=== PATIENT | female | born 1980 | race Caucasian/White ===

== ENCOUNTER → 2017-01-19 | Outpatient (CLI) | payer MEDICARE ==
[~2017-01-19] MED LIST: AMOXICILLIN500 M2 PO; BACTROBAN CREAM15 GM PO; CIPRO250 MG PO; CYCLOBENZAPRINE10 MG PO; DIOVAN; DIOVAN160 M1 PO; FLEXERIL10 MG PO; KEFLEX500 MG PO; LIPITOR; LIPITOR40 MG PO; MEDROL DOSEPAK4 MG PO; MOTRIN800 MG PO; PERCOCET 325 MG1 TA2 PO; PRILOSEC20 MG; PRILOSEC40 MG PO; PROZAC10 M1 PO; PROZAC20 MG PO; TRAMADOL HCL50 MG PO; TYLENOL325 M1 PO; ULTRAM50 MG PO; VITAMIN D32000 IU PO; VITAMIN E T; VITAMIN E100 I3 PO; VOLTAREN1% TP; ZITHROMAX250 MG PO
[2017-01-19 13:16] LABS: ALBUMIN 3.1 gm/dl (3.1-4.5); ALKALINE PHOSPHATASE 135 U/L (45-117); BILIRUBIN, TOTAL 0.3 mg/dl (0.2-1.0); BUN 9 mg/dl (7-24); CARBON DIOXIDE 29 mmol/L (21-32); CHLORIDE 102 mmol/L (98-107); CHOLESTEROL 221 mg/dL (<200); EST GLOM FILT AFRICAN AMERICAN > 60 ml/min; GLUCOSE 93 mg/dL (65-99); HDL CHOLESTEROL 42 mg/dl (40-60); LDL CHOLESTEROL 114 mg/dL (9-159); POTASSIUM 4.2 mmol/L (3.5-5.1); SGOT/AST 33 IU/L (3-35); SGPT/ALT 48 U/L (12-78); SODIUM 143 mmol/L (136-145); TOTAL PROTEIN 7.4 gm/dL (6.4-8.2); TRIGLYCERIDES 327 mg/dl (<150); URIC ACID 4.2 mg/dL (2.6-6.0); VLDL CHOLESTEROL 65 mg/dL (6-40)
== END | disposition home or self-care (01) ==
LOC: LAB 12:08
PROVIDERS: Internal Medicine
DX: E11.65 Type 2 diabetes mellitus with hyperglycemia (principal); I10 Essential (primary) hypertension; M79.671 Pain in right foot

== ENCOUNTER → 2017-02-05 | Outpatient (CLI) | payer MEDICARE ==
[2017-02-06 10:07] LABS: MICRO ALBUMIN/CRE RATIO 14.6 (0.0-30.0)
== END | disposition home or self-care (01) ==
LOC: LAB 08:09
PROVIDERS: Internal Medicine
DX: E11.65 Type 2 diabetes mellitus with hyperglycemia (principal)

== ENCOUNTER → 2017-05-10 | Outpatient (CLI) | payer MEDICARE ==
[2017-05-10 08:55] LABS: ALBUMIN 3.1 gm/dl (3.1-4.5); ALKALINE PHOSPHATASE 122 U/L (45-117); BILIRUBIN, TOTAL 0.3 mg/dl (0.2-1.0); BUN 13 mg/dl (7-24); CARBON DIOXIDE 29 mmol/L (21-32); CHLORIDE 103 mmol/L (98-107); EST GLOM FILT AFRICAN AMERICAN > 60 ml/min; GLUCOSE 124 mg/dL (65-99); POTASSIUM 4.5 mmol/L (3.5-5.1); SGOT/AST 24 IU/L (3-35); SGPT/ALT 48 U/L (12-78); SODIUM 139 mmol/L (136-145); TOTAL PROTEIN 7.2 gm/dL (6.4-8.2)
== END | disposition home or self-care (01) ==
LOC: LAB 08:05
PROVIDERS: Internal Medicine
DX: M79.604 Pain in right leg (principal)

== ENCOUNTER → 2017-08-02 | Outpatient (CLI) | payer MEDICARE ==
[2017-08-02 14:52] LABS: BILIRUBIN NEGATIVE (NEGATIVE); BLOOD 3+ (NEGATIVE); CLARITY CLOUDY (CLEAR); COLOR RED (YELLOW); GLUCOSE NEGATIVE (NEGATIVE); KETONE 1+ (NEGATIVE); LEUKO ESTERASE 2+ (NEGATIVE); NITRITE POSITIVE (NEGATIVE); SPECIFIC GRAVITY 1.025 (1.005-1.030)
[2017-08-02 14:53] LABS: HEMOGLOBIN 11.4 g/dl (12.0-16.0); MEAN CELL VOLUME 89.8 fl (81.0-99.0); MEAN CORPUSCULAR HGB 28.4 pg (27.0-31.0); MEAN CORPUSCULAR HGB CONC 31.7 g/dl (33.0-37.0); MEAN PLATELET VOLUME 10.2 fl (9.6-12.3); PLATELET COUNT AUTOMATED 447 10*3/uL (130-400); RED BLOOD COUNT 4.01 10*6/uL (4.10-5.10); RED CELL DISTRI WIDTH 15.7 % (0-14.5); WHITE BLOOD COUNT 23.5 10*3/uL (4.8-10.8)
[2017-08-02 15:03] LABS: RBC TNTC rbc/hpf (0-2)
[2017-08-02 15:18] LABS: ALBUMIN 2.7 gm/dl (3.1-4.5); ALKALINE PHOSPHATASE 143 U/L (45-117); BUN 12 mg/dl (7-24); CHLORIDE 102 mmol/L (98-107); CREATININE 0.78 mg/dL (0.55-1.02); POTASSIUM 3.9 mmol/L (3.5-5.1); SGOT/AST 15 IU/L (3-35); SGPT/ALT 31 U/L (12-78); SODIUM 139 mmol/L (136-145)
[2017-08-02 15:20] LABS: FREE T4 1.05 ng/dl (0.76-1.46)
[2017-08-02 15:37] LABS: BASOPHILS 1 % (0-1); POLYCHROMASIA SLIGHT; TOTAL CELLS COUNTED 100 #CELLS
[2017-08-02 15:39] LABS: PLATELET SUFFICIENCY HIGH (NORMAL)
== END | disposition home or self-care (01) ==
LOC: LAB 13:57 → US 16:00
PROVIDERS: Internal Medicine
DX: N92.1 Excessive and frequent menstruation with irregular cycle (principal); E03.9 Hypothyroidism, unspecified

== ENCOUNTER 2017-08-06 13:29 | Emergency (ER) | payer MEDICARE ==
[~2017-08-06] VITALS: Ht 154.9 cm; Wt 172.4 kg
== END 2017-08-06 15:52 | disposition home or self-care (01) ==
LOC: ED 13:29
DX: M79.605 Pain in left leg (principal); Z79.899 Other long term (current) drug therapy; Z88.2 Allergy status to sulfonamides; Z88.5 Allergy status to narcotic agent; Z88.6 Allergy status to analgesic agent; Z88.1 Allergy status to other antibiotic agents

== ENCOUNTER → 2017-08-13 | Outpatient (CLI) | payer MEDICARE ==
[~2017-08-13] MED LIST changes: +NORCO 5-325 TA1 EACH PO
[2017-08-13 15:28] LABS: BASO # 0.1 10*3/uL (0.0-0.1); BASO % 0.4 % (0.0-1.0); EOS # 0.6 10*3/uL (0.0-0.4); EOS % 2.9 % (1.0-4.0); HEMATOCRIT 37.5 % (37.0-47.0); HEMOGLOBIN 11.7 g/dl (12.0-16.0); LYMPH # 3.3 10*3/uL (1.3-4.4); LYMPH % 16.5 % (27.0-41.0); MEAN CELL VOLUME 87.6 fl (81.0-99.0); MEAN CORPUSCULAR HGB 27.3 pg (27.0-31.0); MEAN CORPUSCULAR HGB CONC 31.2 g/dl (33.0-37.0); MEAN PLATELET VOLUME 9.9 fl (9.6-12.3); MONO # 1.4 10*3/uL (0.1-1.0); NEUT # 14.4 10*3/uL (2.3-7.9); NEUT % 72.7 % (47.0-73.0); NUCLEATED RED BLOOD CELL 0.2 % (0.0-0.0); PLATELET COUNT AUTOMATED 469 10*3/uL (130-400); RED BLOOD COUNT 4.28 10*6/uL (4.10-5.10); RED CELL DISTRI WIDTH 15.5 % (0-14.5); WHITE BLOOD COUNT 19.9 10*3/uL (4.8-10.8)
[2017-08-13 15:41] LABS: BILIRUBIN NEGATIVE (NEGATIVE); BLOOD 3+ (NEGATIVE); CLARITY CLOUDY (CLEAR); COLOR ORANGE (YELLOW); GLUCOSE TRACE (NEGATIVE); KETONE NEGATIVE (NEGATIVE); NITRITE POSITIVE (NEGATIVE); PH 5.5 (5.0-9.0); SPECIFIC GRAVITY >= 1.030 (1.005-1.030)
[2017-08-13 15:48] LABS: LEUKO ESTERASE TRACE (NEGATIVE)
[2017-08-13 15:49] LABS: RBC TNTC rbc/hpf (0-2)
== END | disposition home or self-care (01) ==
LOC: LAB 15:07 → US 16:00
PROVIDERS: Internal Medicine
DX: N92.1 Excessive and frequent menstruation with irregular cycle (principal); N30.01 Acute cystitis with hematuria

== ENCOUNTER 2017-08-14 15:33 | Emergency (ER) | payer MEDICARE ==
[~2017-08-14] VITALS: Ht 154.9 cm; Wt 158.8 kg
[~2017-08-14 15:33] MED LIST changes: -NORCO 5-325 TA1 EACH PO
[2017-08-14 16:33] LABS: HEMOGLOBIN 11.4 g/dl (12.0-16.0); MEAN CELL VOLUME 88.3 fl (81.0-99.0); MEAN CORPUSCULAR HGB 27.2 pg (27.0-31.0); MEAN CORPUSCULAR HGB CONC 30.8 g/dl (33.0-37.0); MEAN PLATELET VOLUME 9.2 fl (9.6-12.3); PLATELET COUNT AUTOMATED 445 10*3/uL (130-400); RED BLOOD COUNT 4.19 10*6/uL (4.10-5.10); RED CELL DISTRI WIDTH 15.3 % (0-14.5); WHITE BLOOD COUNT 17.8 10*3/uL (4.8-10.8)
[2017-08-14 16:42] LABS: INTERNATIONAL NORM RATIO 0.9 (2.0-3.5)
[2017-08-14 16:46] LABS: ALBUMIN 2.6 gm/dl (3.1-4.5); ALKALINE PHOSPHATASE 135 U/L (45-117); BUN 12 mg/dl (7-24); CHLORIDE 104 mmol/L (98-107); CREATININE 0.92 mg/dL (0.55-1.02); LIPASE 93 U/L (73-393); SGOT/AST 18 IU/L (3-35); SGPT/ALT 22 U/L (12-78); SODIUM 139 mmol/L (136-145); TOTAL PROTEIN 7.3 gm/dL (6.4-8.2)
[2017-08-14 17:03] LABS: ATYPICAL LYMPHS 1 % (0-0); TOTAL CELLS COUNTED 100 #CELLS
[2017-08-14 17:04] LABS: PLATELET SUFFICIENCY HIGH (NORMAL); POLYCHROMASIA SLIGHT; STOMATOCYTE FEW
[2017-08-14] MEDS ORDERED: NORCO 5-325 TA1 EACH PO (18:06)
== END 2017-08-14 18:30 | disposition home or self-care (01) ==
LOC: ED 15:33
PROVIDERS: Physician Assistant
DX: M79.605 Pain in left leg (principal); Z88.2 Allergy status to sulfonamides; Z88.6 Allergy status to analgesic agent; Z88.8 Allergy status to other drugs, medicaments and biological substances; Z79.899 Other long term (current) drug therapy

== ENCOUNTER → 2017-08-24 | Outpatient (CLI) | payer MEDICARE ==
[~2017-08-24] MED LIST changes: +NORCO 5-325 TA1 EACH PO
[2017-08-24 16:53] LABS: HEMATOCRIT 38.5 % (37.0-47.0); HEMOGLOBIN 11.7 g/dl (12.0-16.0); MEAN CELL VOLUME 85.2 fl (81.0-99.0); MEAN CORPUSCULAR HGB 25.9 pg (27.0-31.0); MEAN CORPUSCULAR HGB CONC 30.4 g/dl (33.0-37.0); MEAN PLATELET VOLUME 9.8 fl (9.6-12.3); PLATELET COUNT AUTOMATED 596 10*3/uL (130-400); RED BLOOD COUNT 4.52 10*6/uL (4.10-5.10); RED CELL DISTRI WIDTH 14.8 % (0-14.5); WHITE BLOOD COUNT 21.5 10*3/uL (4.8-10.8)
[2017-08-24 17:16] LABS: BASOPHILS 1 % (0-1); POLYCHROMASIA SLIGHT; TOTAL CELLS COUNTED 100 #CELLS
[2017-08-24 17:17] LABS: PLATELET SUFFICIENCY HIGH (NORMAL); STOMATOCYTE FEW
== END | disposition home or self-care (01) ==
LOC: LAB 16:13
PROVIDERS: Internal Medicine
DX: D72.828 Other elevated white blood cell count (principal)

== ENCOUNTER → 2017-09-06 | Outpatient (CLI) | payer MEDICARE ==
[2017-09-06 08:12] LABS: BASO # 0.1 10*3/uL (0.0-0.1); BASO % 0.6 % (0.0-1.0); EOS # 0.4 10*3/uL (0.0-0.4); EOS % 2.3 % (1.0-4.0); HEMATOCRIT 39.9 % (37.0-47.0); HEMOGLOBIN 12.1 g/dl (12.0-16.0); LYMPH # 4.1 10*3/uL (1.3-4.4); LYMPH % 22.7 % (27.0-41.0); MEAN CELL VOLUME 81.9 fl (81.0-99.0); MEAN CORPUSCULAR HGB 24.8 pg (27.0-31.0); MEAN CORPUSCULAR HGB CONC 30.3 g/dl (33.0-37.0); MEAN PLATELET VOLUME 10.4 fl (9.6-12.3); MONO # 1.4 10*3/uL (0.1-1.0); MONO % 7.7 % (3.0-9.0); NEUT # 12.1 10*3/uL (2.3-7.9); NEUT % 66.4 % (47.0-73.0); PLATELET COUNT AUTOMATED 572 10*3/uL (130-400); RED BLOOD COUNT 4.87 10*6/uL (4.10-5.10); RED CELL DISTRI WIDTH 15.2 % (0-14.5); WHITE BLOOD COUNT 18.2 10*3/uL (4.8-10.8)
[2017-09-06 08:45] LABS: THYROID STIM HORMONE (HS) 2.99 uIU/ml (0.358-4.75)
[2017-09-06 08:55] LABS: FERRITIN 10.1 ng/mL (10.0-291.0)
== END | disposition home or self-care (01) ==
LOC: LAB 07:14
PROVIDERS: Internal Medicine
DX: D64.9 Anemia, unspecified (principal); D72.828 Other elevated white blood cell count

== ENCOUNTER → 2017-12-11 | Outpatient (CLI) | payer MEDICARE | END | disposition home or self-care (01) | LOC: RAD 08:43 | DX: J20.9 Acute bronchitis, unspecified (principal) ==

== ENCOUNTER 2018-04-09 12:14 | Emergency (ER) | payer MEDICARE ==
[~2018-04-09] VITALS: Ht 154.9 cm; Wt 190.5 kg
== END 2018-04-09 13:40 | disposition home or self-care (01) ==
LOC: ED 12:14
DX: H61.23 Impacted cerumen, bilateral (principal); Z88.2 Allergy status to sulfonamides; Z88.6 Allergy status to analgesic agent; Z88.8 Allergy status to other drugs, medicaments and biological substances

== ENCOUNTER → 2018-04-17 | Outpatient (CLI) | payer MEDICARE ==
[2018-04-17 10:21] LABS: BUN 12 mg/dl (7-24); CHLORIDE 104 mmol/L (98-107); POTASSIUM 3.9 mmol/L (3.5-5.1); SODIUM 140 mmol/L (136-145)
[2018-05-06 18:03] LABS: CELLS COUNTED 30 (.); CELLS KARYOTYPED 2 (.); DIRECTOR REVIEW Comment: (.); GTG BAND RESOLUTION ACHIEVED 500 (.); INTERPRETATION Comment: (.); SPECIMEN TYPE Comment: (.)
== END | disposition home or self-care (01) ==
LOC: LAB 09:24
PROVIDERS: Internal Medicine; Obstetrics & Gynecology
DX: K76.0 Fatty (change of) liver, not elsewhere classified (principal); E11.65 Type 2 diabetes mellitus with hyperglycemia; E53.8 Deficiency of other specified B group vitamins; N92.1 Excessive and frequent menstruation with irregular cycle; N30.01 Acute cystitis with hematuria; D72.822 Plasmacytosis; D64.9 Anemia, unspecified; J20.9 Acute bronchitis, unspecified; D18.1 Lymphangioma, any site

== ENCOUNTER → 2018-11-04 | Outpatient (CLI) | payer MEDICARE, MEDICAID ==
[~2018-11-04] MED LIST changes: +AUGMENTIN 875875 MG PO; +METFORMIN HYDR750 MG PO
== END | disposition home or self-care (01) ==
LOC: RAD 09:58
DX: D72.828 Other elevated white blood cell count (principal); R05 Cough; R09.89 Other specified symptoms and signs involving the circulatory and respiratory systems; J45.909 Unspecified asthma, uncomplicated

== ENCOUNTER 2019-02-25 16:31 | Emergency (ER) | payer MEDICARE ==
[~2019-02-25] VITALS: Ht 157.4 cm; Wt 199.6 kg
[2019-02-25] MEDS ORDERED: ROBAXIN500 M1 PO (20:42)
[2019-02-25] MEDS ORDERED: PREDNISONE20 M1 PO (20:42)
== END 2019-02-25 19:49 | disposition home or self-care (01) ==
LOC: ED 16:31
DX: G89.29 Other chronic pain (principal); M25.522 Pain in left elbow; M54.41 Lumbago with sciatica, right side; Z88.2 Allergy status to sulfonamides; Z88.5 Allergy status to narcotic agent; Z79.899 Other long term (current) drug therapy; Z79.84 Long term (current) use of oral hypoglycemic drugs

== ENCOUNTER 2019-11-24 21:22 | Emergency (ER) | payer OTHER ==
[~2019-11-24] VITALS: Ht 154.9 cm; Wt 195.0 kg
[~2019-11-24 21:22] MED LIST changes: +PREDNISONE20 M1 PO; +ROBAXIN500 M1 PO
[2019-11-24] MEDS ORDERED: PREDNISONE20 M1 PO (22:36)
[2019-11-24] MEDS ORDERED: ZYRTEC10 M2 PO (22:36)
[2019-12-03] MEDS ORDERED: VITAMIN C1000 M5 PO (08:07)
[2019-12-03] MEDS ORDERED: SYMB160 INH (08:07)
[2019-12-03] MEDS ORDERED: LASIX20 MG PO (08:08)
[2019-12-03] MEDS ORDERED: PROAIR DIGIHAL90 MCG INH (08:08)
[2019-12-03] MEDS ORDERED: SINGULAIR10 M1 PO (08:08)
[2019-12-03] MEDS ORDERED: KLOR-CON M2020 ME1 PO (08:10)
== END 2019-11-24 23:23 ==
LOC: ED 21:22
DX: J40 Bronchitis, not specified as acute or chronic (principal); G89.29 Other chronic pain; M25.512 Pain in left shoulder; M79.602 Pain in left arm; K21.9 Gastro-esophageal reflux disease without esophagitis; Z88.2 Allergy status to sulfonamides; Z88.6 Allergy status to analgesic agent; Z79.899 Other long term (current) drug therapy

== ENCOUNTER 2019-11-29 01:23 | Emergency (ER) | payer OTHER ==
[~2019-11-29] VITALS: Ht 154.9 cm; Wt 195.0 kg
[~2019-11-29 01:23] MED LIST changes: +ZYRTEC10 M2 PO
[2019-11-29] MEDS ORDERED: TYLENOL325 M1 PO (03:21)
[2019-12-03] MEDS ORDERED: SYMB160 INH (08:07)
[2019-12-03] MEDS ORDERED: VITAMIN C1000 M5 PO (08:07)
[2019-12-03] MEDS ORDERED: PROAIR DIGIHAL90 MCG INH (08:08)
[2019-12-03] MEDS ORDERED: LASIX20 MG PO (08:08)
[2019-12-03] MEDS ORDERED: SINGULAIR10 M1 PO (08:08)
[2019-12-03] MEDS ORDERED: KLOR-CON M2020 ME1 PO (08:10)
== END 2019-11-29 03:38 | disposition home or self-care (01) ==
LOC: ED 01:23
DX: R13.13 Dysphagia, pharyngeal phase (principal); K21.9 Gastro-esophageal reflux disease without esophagitis; E66.01 Morbid (severe) obesity due to excess calories; G89.29 Other chronic pain; Z88.2 Allergy status to sulfonamides; Z88.5 Allergy status to narcotic agent; Z88.8 Allergy status to other drugs, medicaments and biological substances; Z79.899 Other long term (current) drug therapy; Z87.442 Personal history of urinary calculi

== ENCOUNTER → 2019-12-04 | Day surgery (SDC) | payer OTHER ==
[~2019-12-04] VITALS: Ht 154.9 cm; Wt 192.8 kg
[~2019-12-04] MED LIST changes: +KLOR-CON M2020 ME1 PO; +LASIX20 MG PO; +PROAIR DIGIHAL90 MCG INH; +SINGULAIR10 M1 PO; +SYMB160 INH; +VITAMIN C1000 M5 PO
[2019-12-04 14:44] VITALS: BP 120/67
[2019-12-04 16:05] VITALS: BP 116/47
[2019-12-04 16:20] VITALS: BP 114/54
[2019-12-04 16:35] VITALS: BP 113/52
== END | disposition home or self-care (01) ==
LOC: SDC 12-03 14:45
DX: K22.2 Esophageal obstruction (principal); K29.50 Unspecified chronic gastritis without bleeding; K21.9 Gastro-esophageal reflux disease without esophagitis; F32.9 Major depressive disorder, single episode, unspecified; J45.909 Unspecified asthma, uncomplicated; E66.01 Morbid (severe) obesity due to excess calories; Z68.45 Body mass index [BMI] 70 or greater, adult; Z98.890 Other specified postprocedural states; Z79.899 Other long term (current) drug therapy; Z88.5 Allergy status to narcotic agent; Z83.3 Family history of diabetes mellitus

== ENCOUNTER → 2019-12-22 | Outpatient (CLI) | payer OTHER | END | disposition home or self-care (01) | LOC: RAD 07:21 | DX: R13.12 Dysphagia, oropharyngeal phase (principal) ==

== ENCOUNTER → 2020-04-04 | Outpatient (CLI) | payer OTHER ==
[~2020-04-04] MED LIST changes: +ADIPEX-P37.5 MG PO; -LASIX20 MG PO; +LASIX40 MG PO; +VITAMIN E400 UNI2 PO
== END | disposition home or self-care (01) ==
LOC: CT 04-02 09:28
DX: G81.94 Hemiplegia, unspecified affecting left nondominant side (principal)

== ENCOUNTER 2020-04-16 15:17 | Emergency (ER) | payer OTHER ==
[~2020-04-16] VITALS: Ht 154.9 cm; Wt 165.1 kg
[2020-04-16 15:54] LABS: MEAN CELL VOLUME 91.8 fl (81.0-99.0); MEAN CORPUSCULAR HGB 29.1 pg (27.0-31.0); MEAN CORPUSCULAR HGB CONC 31.7 g/dl (33.0-37.0); MEAN PLATELET VOLUME 10.8 fl (9.6-12.3); PLATELET COUNT AUTOMATED 460 10*3/uL (130-400); RED BLOOD COUNT 5.23 10*6/uL (4.10-5.10); RED CELL DISTRI WIDTH 14.9 % (0-14.5)
[2020-04-16 16:10] LABS: ALBUMIN 3.4 gm/dl (3.1-4.5); ALKALINE PHOSPHATASE 133 U/L (45-117); BUN 12 mg/dl (7-24); CHLORIDE 108 mmol/L (98-107); CREATININE 0.89 mg/dL (0.55-1.02); POTASSIUM 4.6 mmol/L (3.5-5.1); SGOT/AST 27 IU/L (3-35); SGPT/ALT 49 U/L (12-78); SODIUM 140 mmol/L (136-145); TOTAL PROTEIN 8.1 gm/dL (6.4-8.2)
[2020-04-16 16:14] LABS: BASOPHILS 1 % (0-1); PLATELET SUFFICIENCY HIGH (NORMAL); TOTAL CELLS COUNTED 100 #CELLS
[2020-04-16 16:55] LABS: BILIRUBIN NEGATIVE (NEGATIVE); CLARITY TURBID (CLEAR); COLOR RED (YELLOW); GLUCOSE NEGATIVE (NEGATIVE); KETONE NEGATIVE (NEGATIVE)
[2020-04-16 16:57] LABS: BLOOD 3+ (NEGATIVE); NITRITE NEGATIVE (NEGATIVE); UROBILINOGEN 0.2 E.U./dl (0.2-1.0)
[2020-04-16 16:58] LABS: RBC TNTC rbc/hpf (0-2)
[2020-04-16 16:59] LABS: LEUKO ESTERASE NEGATIVE (NEGATIVE)
== END 2020-04-16 17:18 | disposition home or self-care (01) ==
LOC: ED 15:17
PROVIDERS: Nurse Practitioner Family
DX: N93.8 Other specified abnormal uterine and vaginal bleeding (principal); K21.9 Gastro-esophageal reflux disease without esophagitis; F32.9 Major depressive disorder, single episode, unspecified; J45.909 Unspecified asthma, uncomplicated; Z88.8 Allergy status to other drugs, medicaments and biological substances; Z88.2 Allergy status to sulfonamides; Z79.899 Other long term (current) drug therapy

== ENCOUNTER → 2020-04-26 | Outpatient (CLI) | payer OTHER | END | disposition home or self-care (01) | LOC: US 04-21 13:00 | DX: N93.9 Abnormal uterine and vaginal bleeding, unspecified (principal); R10.2 Pelvic and perineal pain ==

== ENCOUNTER 2020-05-19 12:43 | Emergency (ER) | payer OTHER ==
[~2020-05-19] VITALS: Ht 154.9 cm; Wt 161.9 kg
[2020-05-19 13:27] LABS: BASO # 0.1 10*3/uL (0.0-0.1); BASO % 0.5 % (0.0-1.0); EOS # 0.2 10*3/uL (0.0-0.4); EOS % 1.2 % (1.0-4.0); HEMATOCRIT 47.7 % (37.0-47.0); LYMPH # 3.3 10*3/uL (1.3-4.4); MEAN CELL VOLUME 88.2 fl (81.0-99.0); MEAN CORPUSCULAR HGB 27.5 pg (27.0-31.0); MEAN CORPUSCULAR HGB CONC 31.2 g/dl (33.0-37.0); MEAN PLATELET VOLUME 10.8 fl (9.6-12.3); MONO # 1.4 10*3/uL (0.1-1.0); MONO % 8.7 % (3.0-9.0); NEUT # 11.5 10*3/uL (2.3-7.9); NEUT % 69.2 % (47.0-73.0); PLATELET COUNT AUTOMATED 446 10*3/uL (130-400); RED BLOOD COUNT 5.41 10*6/uL (4.10-5.10); RED CELL DISTRI WIDTH 13.5 % (0-14.5); WHITE BLOOD COUNT 16.6 10*3/uL (4.8-10.8)
[2020-05-19 14:02] LABS: ALKALINE PHOSPHATASE 133 U/L (45-117); BUN 12 mg/dl (7-24); CHLORIDE 107 mmol/L (98-107); CREATININE 0.81 mg/dL (0.55-1.02); LIPASE 60 U/L (73-393); POTASSIUM 4.8 mmol/L (3.5-5.1); SGOT/AST 24 IU/L (3-35); SGPT/ALT 52 U/L (12-78); SODIUM 139 mmol/L (136-145); TOTAL PROTEIN 7.3 gm/dL (6.4-8.2)
[2020-05-19 14:04] LABS: B-hCG (QUALITATIVE) NEGATIVE (NEGATIVE)
[2020-05-19 14:06] LABS: BILIRUBIN NEGATIVE (NEGATIVE); BLOOD 3+ (NEGATIVE); CLARITY CLOUDY (CLEAR); COLOR YELLOW (YELLOW); GLUCOSE NEGATIVE (NEGATIVE); KETONE NEGATIVE (NEGATIVE); LEUKO ESTERASE 2+ (NEGATIVE); NITRITE NEGATIVE (NEGATIVE); PH 6.5 (5.0-9.0); RBC TNTC rbc/hpf (0-2); SPECIFIC GRAVITY 1.015 (1.005-1.030); UROBILINOGEN 0.2 E.U./dl (0.2-1.0)
[2020-05-19 14:07] LABS: BACTERIA 1+
== END 2020-05-19 14:39 | disposition home or self-care (01) ==
LOC: ED 12:43
PROVIDERS: Emergency Medicine
DX: K42.9 Umbilical hernia without obstruction or gangrene (principal); K21.9 Gastro-esophageal reflux disease without esophagitis; J45.909 Unspecified asthma, uncomplicated; Z88.2 Allergy status to sulfonamides; Z88.6 Allergy status to analgesic agent; Z79.899 Other long term (current) drug therapy

== ENCOUNTER 2020-10-24 13:34 | Emergency (ER) | payer OTHER ==
[~2020-10-24] VITALS: Ht 154.9 cm; Wt 149.7 kg
[2020-10-24] MEDS ORDERED: PREDNISONE20 M1 PO (15:10)
== END 2020-10-24 15:42 | disposition home or self-care (01) ==
LOC: ED 13:34
DX: T78.1XXA Other adverse food reactions, not elsewhere classified, initial encounter (principal); R21 Rash and other nonspecific skin eruption; Z88.2 Allergy status to sulfonamides; Z88.5 Allergy status to narcotic agent; Z88.8 Allergy status to other drugs, medicaments and biological substances; Z79.899 Other long term (current) drug therapy; X58.XXXA Exposure to other specified factors, initial encounter

== ENCOUNTER 2021-04-09 06:55 | Emergency (ER) | payer OTHER ==
[~2021-04-09] VITALS: Ht 154.9 cm; Wt 145.1 kg
== END 2021-04-09 09:58 | disposition home or self-care (01) ==
LOC: ED 06:55
DX: M54.41 Lumbago with sciatica, right side (principal); M47.816 Spondylosis without myelopathy or radiculopathy, lumbar region; Z79.899 Other long term (current) drug therapy; Z88.2 Allergy status to sulfonamides; Z88.8 Allergy status to other drugs, medicaments and biological substances; Z88.5 Allergy status to narcotic agent

== ENCOUNTER 2021-05-26 16:44 | Emergency (ER) | payer OTHER ==
[~2021-05-26] VITALS: Ht 154.9 cm; Wt 143.3 kg
[2021-05-26 18:21] LABS: HEMATOCRIT 50.7 % (37.0-47.0); MEAN CELL VOLUME 86.2 fl (81.0-99.0); MEAN CORPUSCULAR HGB 27.6 pg (27.0-31.0); MEAN PLATELET VOLUME 10.3 fl (9.6-12.3); PLATELET COUNT AUTOMATED 466 10*3/uL (130-400); RED BLOOD COUNT 5.88 10*6/uL (4.10-5.10); RED CELL DISTRI WIDTH 13.4 % (0-14.5); WHITE BLOOD COUNT 21.4 10*3/uL (4.8-10.8)
[2021-05-26 18:50] LABS: BUN 19 mg/dl (7-24); CHLORIDE 105 mmol/L (98-107); CREATININE 0.79 mg/dL (0.55-1.02); POTASSIUM 3.8 mmol/L (3.5-5.1); SODIUM 138 mmol/L (136-145)
[2021-05-26 18:57] LABS: PLATELET SUFFICIENCY HIGH (NORMAL); TOTAL CELLS COUNTED 100 #CELLS
[2021-05-26 18:58] LABS: POLYCHROMASIA SLIGHT; STOMATOCYTE FEW
== END 2021-05-26 20:24 | disposition left against medical advice (07) ==
LOC: ED 16:44
PROVIDERS: Emergency Medicine
DX: R42 Dizziness and giddiness (principal); D75.1 Secondary polycythemia; E66.01 Morbid (severe) obesity due to excess calories; Z88.2 Allergy status to sulfonamides; Z88.5 Allergy status to narcotic agent; Z88.8 Allergy status to other drugs, medicaments and biological substances; Z79.899 Other long term (current) drug therapy; Z87.442 Personal history of urinary calculi

== ENCOUNTER → 2021-08-31 | Outpatient (CLI) | payer OTHER | END | disposition home or self-care (01) | LOC: RAD 16:02 | PROVIDERS: ATTEND Preventive Medicine Occupational Medicine | DX: M79.641 Pain in right hand (principal) ==

== ENCOUNTER → 2021-09-26 | Outpatient (CLI) | payer OTHER | END | disposition home or self-care (01) | LOC: RAD 11:24 | PROVIDERS: ATTEND Nurse Practitioner Family | DX: J20.9 Acute bronchitis, unspecified (principal) ==

== ENCOUNTER → 2022-05-08 | Outpatient (CLI) | payer OTHER ==
[~2022-05-08] MED LIST changes: +PREDNISOLONE SO10 MG PO
== END | disposition home or self-care (01) ==
LOC: LAB 08:18
PROVIDERS: ATTEND Obstetrics & Gynecology
DX: N91.2 Amenorrhea, unspecified (principal); R10.2 Pelvic and perineal pain

== ENCOUNTER 2022-05-12 13:41 | Emergency (ER) | payer OTHER ==
[~2022-05-12] VITALS: Ht 154.9 cm; Wt 150.1 kg
[~2022-05-12 13:41] MED LIST changes: -PREDNISOLONE SO10 MG PO
[2022-05-12] MEDS ORDERED: PREDNISOLONE SO10 MG PO (15:26)
== END 2022-05-12 15:53 | disposition home or self-care (01) ==
LOC: ED 13:41
DX: L25.9 Unspecified contact dermatitis, unspecified cause (principal); Z88.2 Allergy status to sulfonamides; Z88.8 Allergy status to other drugs, medicaments and biological substances; Z79.899 Other long term (current) drug therapy

== ENCOUNTER → 2023-02-21 | Outpatient (CLI) | payer MEDICARE, MEDICAID ==
[~2023-02-21] MED LIST changes: +PREDNISOLONE SO10 MG PO
== END | disposition home or self-care (01) ==
LOC: CARD 12:22
PROVIDERS: ATTEND Nurse Practitioner Family
DX: I07.1 Rheumatic tricuspid insufficiency (principal); M79.89 Other specified soft tissue disorders

== ENCOUNTER → 2023-03-15 | Outpatient (CLI) | payer MEDICARE, MEDICAID | END | disposition home or self-care (01) | LOC: RAD 07:20 | PROVIDERS: ATTEND Nurse Practitioner Family | DX: R05.1 Acute cough (principal) ==

== ENCOUNTER → 2023-04-05 | Outpatient (CLI) | payer MEDICARE, MEDICAID ==
[2023-04-09 19:06] LABS: CODFISH, IGE <0.10 kU/L (Class 0); EGG WHITE, IGE <0.10 kU/L (Class 0); MILK (COW), IGE <0.10 kU/L (Class 0); PEANUT, IGE <0.10 kU/L (Class 0); SOYBEAN, IGE <0.10 kU/L (Class 0); WHEAT, IGE <0.10 kU/L (Class 0)
[2023-04-10 21:06] LABS: ALTERNARIA ALTERNATA, IGE <0.10 kU/L (Class 0); AMERICAN ELM, IGE <0.10 kU/L (Class 0); ASPERGILLUS FUMIGATU, IGE <0.10 kU/L (Class 0); BERMUDA GRASS, IGE <0.10 kU/L (Class 0); BIRCH, COMMON SILVER IGE <0.10 kU/L (Class 0); CLADOSPORIUM HERBARU, IGE <0.10 kU/L (Class 0); D FARINAE MITE 2.96 kU/L (Class III); D PTERONYSSINUS 3.08 kU/L (Class III); DOG DANDER, IGE <0.10 kU/L (Class 0); MAPLE LEAF SYCAMORE, IGE <0.10 kU/L (Class 0); MAPLE/BOX ELDER, IGE <0.10 kU/L (Class 0); MOUSE URINE IGE <0.10 kU/L (Class 0); PENICILLIUM CHRYSOGENUM, IGE <0.10 kU/L (Class 0); ROUGH PIGWEED, IGE 0.12 kU/L (Class 0/I); SHEEP SORREL (DOCK), IGE <0.10 kU/L (Class 0); SHORT RAGWEED, IGE <0.10 kU/L (Class 0); TIMOTHY, IGE <0.10 kU/L (Class 0); WALNUT TREE, IGE <0.10 kU/L (Class 0); WHITE ASH, IGE <0.10 kU/L (Class 0); WHITE MULBERRY, IGE <0.10 kU/L (Class 0); WHITE OAK, IGE 0.13 kU/L (Class 0/I)
== END | disposition home or self-care (01) ==
LOC: LAB 07:11
PROVIDERS: ATTEND Specialist
DX: J30.1 Allergic rhinitis due to pollen (principal)

== ENCOUNTER → 2023-05-29 | Outpatient (CLI) | payer MEDICARE, MEDICAID | END | disposition home or self-care (01) | LOC: US 05-24 10:30 | PROVIDERS: ATTEND Nurse Practitioner | DX: I73.9 Peripheral vascular disease, unspecified (principal) ==

== ENCOUNTER → 2023-07-12 | Outpatient (CLI) | payer OTHER, MEDICAID | END | disposition home or self-care (01) | LOC: RAD 07:10 | PROVIDERS: ATTEND Specialist | DX: J45.41 Moderate persistent asthma with (acute) exacerbation (principal); M25.78 Osteophyte, vertebrae ==

== ENCOUNTER 2023-11-22 15:41 | Emergency (ER) | payer OTHER, MEDICAID ==
[~2023-11-22] VITALS: Ht 154.9 cm; Wt 176.9 kg
[~2023-11-22 15:41] MED LIST changes: -VITAMIN D32000 IU PO; +VITAMIN D325 MC1 PO
[2023-11-22 16:39] LABS: BASO # 0.1 10*3/uL (0.0-0.1); BASO % 0.3 % (0.0-1.0); EOS # 0.3 10*3/uL (0.0-0.4); EOS % 1.4 % (1.0-4.0); LYMPH # 3.2 10*3/uL (1.3-4.4); MEAN CELL VOLUME 89.1 fl (81.0-99.0); MEAN CORPUSCULAR HGB 27.6 pg (27.0-31.0); MEAN PLATELET VOLUME 9.6 fl (9.6-12.3); MONO # 1.4 10*3/uL (0.1-1.0); MONO % 7.1 % (3.0-9.0); NEUT # 14.7 10*3/uL (2.3-7.9); NEUT % 74.8 % (47.0-73.0); PLATELET COUNT AUTOMATED 415 10*3/uL (130-400); RED BLOOD COUNT 5.39 10*6/uL (4.10-5.10); RED CELL DISTRI WIDTH 14.9 % (0-14.5); WHITE BLOOD COUNT 19.7 10*3/uL (4.8-10.8)
[2023-11-22 17:14] LABS: ALKALINE PHOSPHATASE 159 U/L (46-116); BUN 12 mg/dl (9-23); CHLORIDE 104 mmol/L (98-107); POTASSIUM 3.7 mmol/L (3.4-5.1); SGPT/ALT 29 U/L (5-49); TOTAL PROTEIN 7.3 gm/dL (6.0-8.0)
[2023-11-22] MEDS ORDERED: ATORVASTATIN CA80 M1 PO (18:08)
[2023-11-22] MEDS ORDERED: SENNA-TIME S T1 EACH PO (18:12)
[2023-11-22] MEDS ORDERED: OZEMPIC0.25 MG/03 SQ (18:14)
[2023-11-22] MEDS ORDERED: ZYRTEC10 M2 PO (18:14)
[2023-11-22] MEDS ORDERED: PREDNISONE10 MG PO (20:11)
[2023-11-22] MEDS ORDERED: AVPAK AZITHROM250 M1 PO (20:11)
== END 2023-11-22 20:25 | disposition home or self-care (01) ==
LOC: ED 15:41
PROVIDERS: Physician Assistant Medical
DX: J45.901 Unspecified asthma with (acute) exacerbation (principal); K21.9 Gastro-esophageal reflux disease without esophagitis; Z88.2 Allergy status to sulfonamides; Z88.5 Allergy status to narcotic agent; Z88.6 Allergy status to analgesic agent; Z79.899 Other long term (current) drug therapy

== ENCOUNTER → 2024-05-19 | Outpatient (CLI) | payer MEDICARE, MEDICAID ==
[~2024-05-19] MED LIST changes: +ATORVASTATIN CA80 M1 PO; +AVPAK AZITHROM250 M1 PO; +OZEMPIC0.25 MG/03 SQ; +PREDNISONE10 MG PO; +SENNA-TIME S T1 EACH PO
== END | disposition home or self-care (01) ==
LOC: CARD 07:40
PROVIDERS: ATTEND Nurse Practitioner
DX: J45.909 Unspecified asthma, uncomplicated (principal); E78.5 Hyperlipidemia, unspecified; K21.9 Gastro-esophageal reflux disease without esophagitis; D50.9 Iron deficiency anemia, unspecified; E53.8 Deficiency of other specified B group vitamins; G47.33 Obstructive sleep apnea (adult) (pediatric); Z68.45 Body mass index [BMI] 70 or greater, adult

== ENCOUNTER → 2024-06-25 | Outpatient (CLI) | payer MEDICARE, MEDICAID ==
[2024-06-25 13:03] LABS: ABG O2 SATURATION 87.6 % (94.0-98.0); ARTERIAL BLOOD GAS PH 7.382 (7.350-7.450)
[2024-06-25 14:11] LABS: ABG BASE EXCESS 3.6 mmol/L (-2.0-3.0)
[2024-06-25 14:43] LABS: ARTERIAL BLOOD GAS PO2 52.9 mmHg (83.0-108.0)
== END | disposition home or self-care (01) ==
LOC: LAB 12:25
PROVIDERS: ATTEND Internal Medicine Critical Care Medicine
DX: J45.40 Moderate persistent asthma, uncomplicated (principal); J30.89 Other allergic rhinitis; R06.83 Snoring; R53.83 Other fatigue; G47.33 Obstructive sleep apnea (adult) (pediatric); Z68.45 Body mass index [BMI] 70 or greater, adult

== ENCOUNTER 2024-07-26 13:33 | Emergency (ER) | payer MEDICARE, MEDICAID ==
[~2024-07-26] VITALS: Ht 154.9 cm; Wt 181.4 kg
[2024-07-26] MEDS ORDERED: PHENTERMINE H37.5 M1 PO (13:45)
[2024-07-26] MEDS ORDERED: BREO ELLIPTA 11 EACH INH (13:46)
[2024-07-26] MEDS ORDERED: ERYTHROMYCIN OPH1 GM OPH (14:12)
[2024-07-26] MEDS ORDERED: AMOX-CLAV 875-1 EACH PO (14:12)
[2024-07-26] MEDS ORDERED: Amoxicillin/Clavulanate Pota 875 MG TAB PO ONE (14:15)
[2024-07-26] MEDS ORDERED: ERYTHROMYCIN 1 GM TUBE OPH ONE (14:15)
== END 2024-07-26 14:27 | disposition home or self-care (01) ==
LOC: ED 13:33
DX: H00.012 Hordeolum externum right lower eyelid (principal); H66.91 Otitis media, unspecified, right ear; J45.909 Unspecified asthma, uncomplicated; K21.9 Gastro-esophageal reflux disease without esophagitis; F32.A Depression, unspecified; E11.9 Type 2 diabetes mellitus without complications; Z88.2 Allergy status to sulfonamides; Z88.5 Allergy status to narcotic agent; Z88.6 Allergy status to analgesic agent; Z88.8 Allergy status to other drugs, medicaments and biological substances; Z87.442 Personal history of urinary calculi; Z90.89 Acquired absence of other organs; Z98.890 Other specified postprocedural states